=== PATIENT | male | born 2005 | race Caucasian/White ===

== ENCOUNTER 2023-06-01 12:07 | Emergency (ER) | payer BC, SELFPAY ==
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
[2023-06-01 12:07] VITALS: BP 148/97; PULSE 98; RESP 17; TEMP 36.4; O2SAT 98
[2023-06-01 12:30] VITALS: BP 147/76; PULSE 97; RESP 17; O2SAT 98
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
[2023-06-01 13:00] VITALS: BP 137/79; PULSE 91; RESP 17; O2SAT 97
[2023-06-01 13:19] VITALS: BP 135/75; PULSE 83; RESP 17; TEMP 36.4; O2SAT 99
== END 2023-06-01 13:19 | disposition short-term general hospital (02) ==
PROVIDERS: Emergency Provider Emergency Medicine; PCP Physician Assistant
DX: M54.50 Low back pain, unspecified (principal); R10.30 Lower abdominal pain, unspecified; V89.2XXA Person injured in unspecified motor-vehicle accident, traffic, initial encounter
CPT/HCPCS: 71045; 72170; 99285; L0150